=== PATIENT | male | born 1965 | race Caucasian/White ===

== ENCOUNTER 2017-10-06 17:30 | Outpatient (CLI) | payer BC | END 2017-10-06 17:31 | disposition home or self-care (01) | LOC: SLEEPLAB 17:30 | PROVIDERS: ATTEND Family Medicine | DX: G47.33 Obstructive sleep apnea (adult) (pediatric) (principal); R06.81 Apnea, not elsewhere classified | CPT/HCPCS: 95806 ==

== ENCOUNTER 2018-03-30 16:44 | Outpatient (CLI) | payer BC ==
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
== END 2018-03-30 16:45 | disposition home or self-care (01) ==
LOC: SCSRAD 16:44
PROVIDERS: ATTEND Physical Medicine & Rehabilitation
DX: S32.040A Wedge compression fracture of fourth lumbar vertebra, initial encounter for closed fracture (principal); M43.16 Spondylolisthesis, lumbar region; M54.5 Low back pain
CPT/HCPCS: 72120